=== PATIENT | male | born 1995 | race African-American/Black ===

== ENCOUNTER 2023-07-14 19:35 | Inpatient (IN) | payer BC, MEDICAID ==
[~2023-07-14] VITALS: Ht 172.7 cm; Wt 72.6 kg
[2023-07-14] MEDS ORDERED: HYDROCODONE/ACETAMINOPHEN 10/325MG TABLET PO ONE (21:15)
[2023-07-14] MEDS ORDERED: KETOROLAC 60MG/2ML VIAL IM ONE (21:15)
[2023-07-14] MEDS ORDERED: DIVALPROEX SODIUM 250MG ER TABLET PO ONE (21:30)
[2023-07-15] MEDS ORDERED: CYCLOBENZAPRINE 10MG TABLET PO ONE (00:30)
[2023-07-15] MEDS ORDERED: IBUP-2030 MT (00:30)
[2023-07-15] MEDS ORDERED: CYCL5TAB MT (00:30)
[2023-07-15 00:44] LABS: BASOPHILS % 0.5 % (0.0-2.0); EOSINOPHILS % 0.2 % (0.0-5.0); HEMATOCRIT. 43.2 % (42.0-52.0); HEMOGLOBIN. 14.5 g/dL (14.0-18.0); LYMPHOCYTES % 20.6 % (20.0-50.0); MEAN CORPUSCULAR HGB CONC 33.6 g/dL (31.0-37.0); MEAN CORPUSCULAR VOLUME 89.2 fL (80.0-94.0); MEAN PLATELET VOLUME 9.2 fl (7.4-10.4); MONOCYTES % 4.7 % (2.0-8.0); PLATELET 180 x1000/uL (130-400); RED BLOOD CELL COUNT 4.84 mill/uL (4.7-6.1); WHITE BLOOD COUNT 12.2 x1000/uL (4.5-11.0)
[2023-07-15 00:58] LABS: CHLORIDE 106 mEq/L (98-107); INDEX HEMOLYSI 1 (1-3); INDEX ICTERIC 1 (1-4); INDEX LIPEMIC 1 (1-3); POTASSIUM 3.7 mEq/L (3.5-5.1); SODIUM 139 mEq/L (136-145)
[2023-07-15 01:18] LABS: ALANINE AMINOTRANSFERASE 20 IU/L (13-61); ALBUMIN 3.9 g/dL (3.4-5.0); ASPARTATE AMINOTRANSFERASE 15 IU/L (15-37); BILIRUBIN TOTAL 0.4 mg/dL (0.1-1.0); CALCIUM 8.6 mg/dL (8.5-10.1); CARBON DIOXIDE 27 mEq/L (21-32); GLUCOSE 108 mg/dL (70-105); PROTEIN TOTAL 7.5 g/dL (6.0-8.3); UREA NITROGEN BLOOD 15 mg/dL (7-21)
[2023-07-15] MEDS: HYDROCODONE/ACETAMINOPHEN 5/325MG TABLET PO PRN ×2 (02:59→07:43)
[2023-07-15] MEDS ORDERED: DOCUSATE SODIUM 100MG CAPSULE PO PRN (05:15)
[2023-07-15] MEDS ORDERED: IPRATROPIUM/ALBUTEROL 0.5-3(2.5)MG/3ML NEB HHN PRN (05:15)
[2023-07-15] MEDS ORDERED: ONDANSETRON HCL 4MG/2ML INJ IV PRN (05:15)
[2023-07-15] MEDS ORDERED: CLONIDINE 0.1MG TABLET PO PRN (05:15)
[2023-07-15] MEDS ORDERED: ACETAMINOPHEN 325MG TABLET PO PRN (05:15)
[2023-07-15] MEDS ORDERED: DEXTROSE 50% WATER 50ML SYRINGE IV PRN (05:15)
[2023-07-15 08:03] LABS: BASOPHILS % 0.6 % (0.0-2.0); EOSINOPHILS % 1.4 % (0.0-5.0); HEMATOCRIT. 45.1 % (42.0-52.0); HEMOGLOBIN. 15.1 g/dL (14.0-18.0); LYMPHOCYTES % 36.1 % (20.0-50.0); MEAN CORPUSCULAR HEMOGLOBIN 30.2 pg (28.0-32.0); MEAN CORPUSCULAR HGB CONC 33.5 g/dL (31.0-37.0); MEAN CORPUSCULAR VOLUME 90.2 fL (80.0-94.0); MEAN PLATELET VOLUME 9.4 fl (7.4-10.4); MONOCYTES % 6.5 % (2.0-8.0); NEUTROPHILS % 55.4 % (40.0-76.0); PLATELET 188 x1000/uL (130-400); RED CELL DISTRIBUTION WIDTH 12.9 % (11.6-14.6); WHITE BLOOD COUNT 8.8 x1000/uL (4.5-11.0)
[2023-07-15 08:06] LABS: CHLORIDE 108 mEq/L (98-107); INDEX HEMOLYSI 1 (1-3); INDEX ICTERIC 1 (1-4); INDEX LIPEMIC 1 (1-3); POTASSIUM 3.7 mEq/L (3.5-5.1); SODIUM 139 mEq/L (136-145)
[2023-07-15 08:20] LABS: ALANINE AMINOTRANSFERASE 20 IU/L (13-61); ALBUMIN 3.6 g/dL (3.4-5.0); ASPARTATE AMINOTRANSFERASE 14 IU/L (15-37); BILIRUBIN TOTAL 0.6 mg/dL (0.1-1.0); CALCIUM 8.6 mg/dL (8.5-10.1); CARBON DIOXIDE 28 mEq/L (21-32); CHOLESTEROL 197 mg/dL (<200); GLUCOSE 99 mg/dL (70-105); HDL CHOLESTEROL 40 mg/dL (40-59); LDL CHOLESTEROL 139 mg/dL (5-100); PROTEIN TOTAL 7.6 g/dL (6.0-8.3); T4 FREE 1.13 ng/dL (0.76-1.46); TRIGLYCERIDE 146 mg/dL (0-150); UREA NITROGEN BLOOD 15 mg/dL (7-21)
[2023-07-15 09:00] VITALS: BP 119/74; PULSE 65; RESP 16; TEMP 96.3
[2023-07-15] MEDS ORDERED: DIVALPROEX SODIUM 250MG DR TABLET PO SCH (09:00)
[2023-07-15 09:38] LABS: ERYTHROCYTE SEDIMENTATION RATE 2 mm/hr (0-15)
[2023-07-15] MEDS: FAMOTIDINE 20MG TABLET PO SCH ×2 (10:08→20:09)
[2023-07-15] MEDS: ENOXAPARIN 40MG/0.4ML SYR SUBCUT SCH (10:08)
[2023-07-15 10:15] LABS: FOLIC ACID (FOLATE) SERUM 16.9 ng/mL (>5.38)
[2023-07-15 12:00] VITALS: BP 124/83; PULSE 63; RESP 20; TEMP 98.6
[2023-07-15] MEDS ORDERED: KETOROLAC 15MG/ML VIAL IV PRN (13:30)
[2023-07-15 16:00] VITALS: BP 123/74; PULSE 68; RESP 21; TEMP 97.9
[2023-07-15] MEDS: DIVALPROEX SODIUM 500MG DR TABLET PO SCH (17:40)
[2023-07-15] MEDS ORDERED: DEXAMETHASONE 4MG/ML 1ML VIAL IV NR (18:00)
[2023-07-15 19:28] LABS: CLARITY URINE CLEAR (CLEAR); COLOR URINE YELLOW (YELLOW); GLUCOSE URINE NEGATIVE (NEGATIVE); KETONES URINE NEGATIVE (NEGATIVE); LEUKOCYTE ESTERASE URINE NEGATIVE (NEGATIVE); NITRITE URINE NEGATIVE (NEGATIVE); OCCULT BLOOD URINE NEGATIVE (NEGATIVE); PROTEIN URINE NEGATIVE (NEGATIVE); SPECIFIC GRAVITY URINE 1.014 (1.005-1.030); UROBILINOGEN URINE 0.2 E.U./dL (0.2-1.0)
[2023-07-15 19:39] LABS: *AMPHETAMINES SCREEN URINE NEGATIVE (NEGATIVE); *BARBITURATES SCREEN URINE NEGATIVE (NEGATIVE); *BENZODIAZEPINES SCREEN URINE NEGATIVE (NEGATIVE); *COCAINE SCREEN URINE NEGATIVE (NEGATIVE); CANNABINOID URINE SCREEN PRESUMTIVE POSITIVE (NEGATIVE); ECSTASY MDMA SCREEN URINE NEGATIVE (NEGATIVE); OPIATES URINE SCREEN PRESUMTIVE POSITIVE (NEGATIVE); PHENCYCLIDINE URINE SCREEN NEGATIVE (NEGATIVE)
[2023-07-15 20:00] VITALS: BP 111/75; PULSE 61; RESP 18; TEMP 97.9
[2023-07-15] MEDS: LIDOCAINE 5% PATCH TOP SCH (20:20)
[2023-07-16] VITALS: BP 114/66; PULSE 62; RESP 20; TEMP 98.7
[2023-07-16 04:00] VITALS: BP 114/60; PULSE 66; RESP 20; TEMP 98.8
[2023-07-16 07:47] LABS: BASOPHILS % 0.2 % (0.0-2.0); HEMATOCRIT. 48.8 % (42.0-52.0); HEMOGLOBIN. 16.9 g/dL (14.0-18.0); LYMPHOCYTES % 13.8 % (20.0-50.0); MEAN CORPUSCULAR HEMOGLOBIN 31.2 pg (28.0-32.0); MEAN CORPUSCULAR HGB CONC 34.6 g/dL (31.0-37.0); MEAN CORPUSCULAR VOLUME 90.2 fL (80.0-94.0); MONOCYTES % 2.7 % (2.0-8.0); NEUTROPHILS % 83.3 % (40.0-76.0); PLATELET 217 x1000/uL (130-400); RED BLOOD CELL COUNT 5.42 mill/uL (4.7-6.1); RED CELL DISTRIBUTION WIDTH 12.9 % (11.6-14.6)
[2023-07-16 08:00] VITALS: BP 105/59; PULSE 72; RESP 19; TEMP 97.5
[2023-07-16] MEDS: LIDOCAINE 5% PATCH TOP SCH (08:15)
[2023-07-16] MEDS: DIVALPROEX SODIUM 500MG DR TABLET PO SCH (08:16)
[2023-07-16] MEDS: FAMOTIDINE 20MG TABLET PO SCH (08:16)
[2023-07-16] MEDS: ENOXAPARIN 40MG/0.4ML SYR SUBCUT SCH (08:16)
[2023-07-16 08:38] LABS: CHLORIDE 107 mEq/L (98-107); INDEX HEMOLYSI 2 (1-3); INDEX ICTERIC 1 (1-4); INDEX LIPEMIC 1 (1-3); POTASSIUM 4.8 mEq/L (3.5-5.1); SODIUM 136 mEq/L (136-145)
[2023-07-16 08:46] LABS: CALCIUM 8.9 mg/dL (8.5-10.1); CARBON DIOXIDE 23 mEq/L (21-32); CREATININE 0.9 mg/dL (0.6-1.3); GLUCOSE 124 mg/dL (70-105); TROPONIN I HIGH SENSITIVITY 6 ng/L (<78); UREA NITROGEN BLOOD 16 mg/dL (7-21)
[2023-07-16] MEDS ORDERED: DIVA-75 PO (11:02)
[2023-07-16] MEDS ORDERED: MED4 MT ×2 (11:03→11:11)
[2023-07-16 11:38] VITALS: BP 19/105; PULSE 72; TEMP 97.5; O2SAT 59
[2023-07-16 12:00] VITALS: BP 115/70; PULSE 66; RESP 17; TEMP 97.9
== END 2023-07-16 14:52 | disposition home or self-care (01) | DRG 552 ==
LOC: ER 19:35 → MICUSO 07-15 04:09 → EDBEDREQ 07-15 04:16 → EDBEDREQTM 07-15 04:16 → 6EST 07-15 08:28
PROVIDERS: ADMIT Internal Medicine; ATTEND Internal Medicine
DX: M54.50 Low back pain, unspecified (principal); F12.90 Cannabis use, unspecified, uncomplicated; G40.909 Epilepsy, unspecified, not intractable, without status epilepticus; Z82.49 Family history of ischemic heart disease and other diseases of the circulatory system
CPT/HCPCS: 36415; 71045; 72148; 80048; 80053; 80061; 80305; 81003; 82607; 82746; 83036; 83605; 84145; 84439; 84443; 84484; 85025; 85651; 93005; 93970; 99285; J1100; J1650; J1885; J2405